=== PATIENT | male | born 1995 | race Caucasian/White ===

== ENCOUNTER 2018-11-03 02:05 | Emergency (ER) | payer SELFPAY ==
[~2018-11-03] VITALS: Ht 177.8 cm; Wt 97.5 kg
--- NOTE | 2018-11-03 02:20 | NUR ---
PATIENT WAS MSE BY DR HEAD IN ROOM 03A. PATIENT A & O X3.
[2018-11-03] MEDS ORDERED: HYDROCODONE/APAP 5-325MG TABLET ONE (02:32)
[2018-11-03] MEDS: PSEUDOEPHEDRINE HCL 30 MG TABLET PO ONE (02:32)
[2018-11-03] MEDS: HYDROCODONE/APAP 5-325MG TABLET PO ONE (02:32)
[2018-11-03] MEDS ORDERED: PSEUDOEPHEDRINE HCL 30 MG TABLET ONE (02:32)
--- NOTE | 2018-11-03 02:35 | NUR ---
Patient discharged to home in stable conditon. Written and verbal after care instructions given. Patient verbalizes understanding of instructions.
[2018-11-03 02:39] VITALS: BP 132/75
== END 2018-11-03 02:41 | disposition home or self-care (01) ==
LOC: ER 02:07
DX: T70.0XXA Otitic barotrauma, initial encounter (principal); X58.XXXA Exposure to other specified factors, initial encounter; Y93.89 Activity, other specified; Y92.89 Other specified places as the place of occurrence of the external cause; Y99.8 Other external cause status
CPT/HCPCS: A4663